=== PATIENT | female | born 1995 | race Caucasian/White ===

== ENCOUNTER 2016-10-26 12:59 | Emergency (ER) | payer OTHER ==
[~2016-10-26] VITALS: Ht 175.3 cm; Wt 72.2 kg
[2016-10-26 13:08] VITALS: TEMP 37.1; Ht 175.3 cm; Wt 72.2 kg
[2016-10-26 13:45] LABS: BASO % 0.1 %; BASO ABS # 0.01 K/uL (0-0.2); COMPLETE YES; EOS % 1.6 %; HEMATOCRIT 44.1 % (37-47); IG% 0.2 %; LYMPH % 10.8 %; MEAN CELL VOLUME 91.9 fL (80-100); MEAN CORPUSCULAR HEMOGLOBIN 29.2 pg (25-34); MEAN CORPUSCULAR HGB CONC 31.7 g/dl (32-36); MEAN PLATELET VOLUME 10.6 fL (7.4-10.4); MONO % 4.6 %; NEUT % 82.7 %; PLATELET COUNT 221 K/uL (130-400); WHITE BLOOD COUNT 10.17 K/uL (4.8-10.8)
[2016-10-26] MEDS ORDERED: BCPILLS PO (13:46)
--- NOTE | 2016-10-26 13:53 | DIAGNOSTIC IMAGING REPORT ---
CHEST ONE VIEW PORTABLE CLINICAL HISTORY: 20 years-old Female presenting with cp. TECHNIQUE: Portable upright AP view of the chest was obtained. COMPARISON: None. FINDINGS: Cardiomediastinal silhouette normal. Lungs and pleural spaces clear. Osseous structures normal. Upper abdomen normal. IMPRESSION: 1. No acute cardiopulmonary disease. Electronically signed by: Ethan Campbell M.D. 10/26/2016 1:51 PM Dictated Date/Time: 10/26/2016 1:50 PM
[2016-10-26 14:05] LABS: ALT/SGPT 20 U/L (12-78); BLOOD UREA NITROGEN 17 mg/dl (7-18); BUN/CREATININE RATIO 21.9 (10-20); CALCIUM 8.8 mg/dl (8.5-10.1); CARBON DIOXIDE 26 mmol/L (21-32); CHLORIDE 103 mmol/L (98-107); CREATININE 0.77 mg/dl (0.60-1.20); GLUCOSE 94 mg/dl (70-99); POTASSIUM 3.7 mmol/L (3.5-5.1); SODIUM 137 mmol/L (136-145)
[2016-10-26 14:10] LABS: ALKALINE PHOSPHATASE 59 U/L (45-117); AST/SGOT 17 U/L (15-37)
[2016-10-26] MEDS ORDERED: OPTIRAY 320 IV PRN (14:15)
[2016-10-26 14:53] LABS: URINE APPEARANCE CLEAR (CLEAR); URINE BILIRUBIN NEG (NEG); URINE COLOR YELLOW; URINE EPITHELIAL CELL AUTO >30 /lpf (0-5); URINE NITRITE NEG (NEG); URINE PH 7.5 (4.5-7.5); UROBILINOGEN NEG (NEG); ZZUR CULT IF INDIC CLEAN CATCH NO
--- NOTE | 2016-10-26 15:04 | DIAGNOSTIC IMAGING REPORT ---
(CHEST FOR PE) ANGIO WITH CT DOSE: 211.64 mGy.cm HISTORY: Chest pain dyspnea TECHNIQUE: Multiaxial CT images of the chest were performed following the intravenous administration of contrast to evaluate the pulmonary arteries. Maximal intensity projection images were also obtained. A dose lowering technique was utilized adhering to the principles of ALARA. COMPARISON STUDY: None. FINDINGS: There is a normal caliber thoracic aorta with no evidence for dissection. There is no evidence for pulmonary embolus. No pleural effusions. No pneumothorax. The liver and spleen are unremarkable. No mediastinal or hilar lymphadenopathy. The central airways are patent. The lungs are clear. Moderate enlargement left thyroid lobe IMPRESSION: No evidence for pulmonary embolus.. Lungs are clear. Moderate enlargement left thyroid lobe. Thyroid ultrasound is recommended on a routine basis when the patient is able The above report was generated using voice recognition software. It may contain grammatical, syntax or spelling errors. Electronically signed by: Julito Ma M.D. 10/26/2016 3:03 PM Dictated Date/Time: 10/26/2016 3:00 PM
[2016-10-26 15:08] LABS: MANUAL MICROSCOPIC REQUIRED? NO; REVIEW REQ? NO
[2016-10-26 17:05] VITALS: BP 119/73; PULSE 72; O2SAT 98
--- NOTE | 2016-10-26 18:52 | EMERGENCY ROOM VISIT NOTE ---
History Report prepared by Tadeo: Loy Carl Under the Supervision of: Dr. Dez Ackerman D.O. First contact with patient: 13:18 Chief Complaint: SYNCOPE Stated Complaint: SYNCOPE/CHEST PAIN Nursing Triage Summary: Patient was sitting at a table working on a group project around 1230 when she had a syncopal episode. Patient reports she did have LOC. Patient's friend caught her so she did not fall out of chair. Patient was incontient of urine. Patient reports about 2 years ago had syncopal episode, but did not have LOC that time. Reports some chest tightness at this time. History of Present Illness The patient is a 20 year old female who presents to the Emergency Room with complaints of syncope that occurred 2 hours ago. At this time, the patient was working on a group project when she began feeling lightheaded. She got some water and became nauseated, so she sat down and put her head on the table. Per her friends, she passed out. They caught her before she could fall out of her chair. This has never happened to the patient before. She notes that she was unconscious for about 20-30 seconds and lost control of her bladder. When she woke up, she was shaky and diaphoretic, but knew where she was. Prior to this episode, she notes having some centralized chest pain that is ache-like in nature. Pt denies headache, change in vision, fevers, shortness of breath, vomiting, diarrhea, pain with urination, weakness/tingling in the arms or legs, and melena. She denies any recent travel, sick contacts, hiking trips, or anything out of her norm. She has some indigestion occasionally without a pattern. She is on an estrogen based control. She is still lightheaded and notes that it worsens with movement. Denies any history of diabetes, hypertension, hyperlipidemia, CAD or sudden in her family at a young age. Source of History: patient Onset: 2 hours ago Position: other (global) Symptom Intensity: 20-30 seconds Quality: other (Syncope) Timing: resolved Modifying Factors (Worsening): movement (lightheadedness worsens) Associated Symptoms: + diaphoresis, + nausea, No fevers, No headache, No chest pain, No SOB, No vomiting, No melena, No diarrhea, No urinary symptoms, No weakness, No numbness Note: She is lightheaded. Review of Systems See HPI for pertinent positives & negatives. A total of 10 systems reviewed and were otherwise negative. Family History Patient reports no known family medical history. Social History Smoking Status: Never Smoker Smokeless Tobacco Use: No Alcohol Use: none Drug Use: none Marital Status: single Housing Status: lives with roommate Occupation Status: student Current/Historical Medications Scheduled Control Pills ( Control Pills), 1 TAB PO DAILY Allergies Coded Allergies: No Known Allergies (Unverified , 10/26/16) Physical Exam Vital Signs Date Time Temp Pulse Resp B/P (MAP) Pulse Ox O2 Delivery O2 Flow Rate FiO2 10/26/16 17:05 72 16 119/73 98 Room Air 10/26/16 16:00 70 18 118/74 99 10/26/16 14:29 76 10/26/16 13:59 70 96 10/26/16 13:29 67 20 100 10/26/16 13:11 58 103/58 66 113/69 70 102/70 10/26/16 13:10 102/70 10/26/16 13:09 59 10/26/16 13:09 113/69 10/26/16 13:08 37.1 62 18 109/64 95 Room Air Physical Exam GENERAL: alert, sitting up in bed, well appearing, well nourished, no distress, non-toxic EYE EXAM: normal conjunctiva, PERRL and EOM's intact OROPHARYNX: no exudate, no erythema, lips, buccal mucosa, and tongue normal and mucous membranes are moist NECK: supple, no nuchal rigidity, no adenopathy, non-tender LUNGS: Clear to auscultation. Normal chest wall mechanics HEART: no murmurs, S1 normal and S2 normal ABDOMEN: abdomen soft, non-tender, normo-active bowel sounds, no masses, no rebound or guarding. BACK: Back is symmetrical on inspection and there is no deformity, no midline tenderness, no CVA tenderness. SKIN: no rashes and no bruising UPPER EXTREMITIES: upper extremities are grossly normal. LOWER EXTREMITIES: No pitting edema. NEURO EXAM: Normal sensorium, cranial nerves II-XII intact, normal speech, no weakness of arms, no weakness of legs. No drift. Finger to nose intact. Gross sensation intact. Medical Decision & Procedures ER Provider Diagnostic Interpretation: Radiology results as stated below per my review and the radiologist's interpretation: CHEST ONE VIEW PORTABLE CLINICAL HISTORY: 20 years-old Female presenting with cp. TECHNIQUE: Portable upright AP view of the chest was obtained. COMPARISON: None. FINDINGS: Cardiomediastinal silhouette normal. Lungs and pleural spaces clear. Osseous structures normal. Upper abdomen normal. IMPRESSION: 1. No acute cardiopulmonary disease. Electronically signed by: Ethan Campbell M.D. 10/26/2016 1:51 PM Dictated Date/Time: 10/26/2016 1:50 PM (CHEST FOR PE) ANGIO WITH CT DOSE: 211.64 mGy.cm HISTORY: Chest pain dyspnea TECHNIQUE: Multiaxial CT images of the chest were performed following the intravenous administration of contrast to evaluate the pulmonary arteries. Maximal intensity projection images were also obtained. A dose lowering technique was utilized adhering to the principles of ALARA. COMPARISON STUDY: None. FINDINGS: There is a normal caliber thoracic aorta with no evidence for dissection. There is no evidence for pulmonary embolus. No pleural effusions. No pneumothorax. The liver and spleen are unremarkable. No mediastinal or hilar lymphadenopathy. The central airways are patent. The lungs are clear. Moderate enlargement left thyroid lobe IMPRESSION: No evidence for pulmonary embolus.. Lungs are clear. Moderate enlargement left thyroid lobe. Thyroid ultrasound is recommended on a routine basis when the patient is able The above report was generated using voice recognition software. It may contain grammatical, syntax or spelling errors. Electronically signed by: Julito Ma M.D. 10/26/2016 3:03 PM Dictated Date/Time: 10/26/2016 3:00 PM Laboratory Results 10/26/16 13:16 Red Blood Count 4.80, Mean Corpuscular Volume 91.9, Mean Corpuscular Hemoglobin 29.2, Mean Corpuscular Hemoglobin Concent 31.7, Mean Platelet Volume 10.6, Neutrophils (%) (Auto) 82.7, Lymphocytes (%) (Auto) 10.8, Monocytes (%) (Auto) 4.6, Eosinophils (%) (Auto) 1.6, Basophils (%) (Auto) 0.1, Neutrophils # (Auto) 8.41, Lymphocytes # (Auto) 1.10, Monocytes # (Auto) 0.47, Eosinophils # (Auto) 0.16, Basophils # (Auto) 0.01 10/26/16 13:16 Test 10/26/16 13:16 10/26/16 14:20 10/26/16 15:41 White Blood Count 10.17 K/uL (4.8-10.8) Red Blood Count 4.80 M/uL (4.2-5.4) Hemoglobin 14.0 g/dL (12.0-16.0) Hematocrit 44.1 % (37-47) Mean Corpuscular Volume 91.9 fL (80-100) Mean Corpuscular Hemoglobin 29.2 pg (25-34) Mean Corpuscular Hemoglobin Concent 31.7 g/dl (32-36) Platelet Count 221 K/uL (130-400) Mean Platelet Volume 10.6 fL (7.4-10.4) Neutrophils (%) (Auto) 82.7 % Lymphocytes (%) (Auto) 10.8 % Monocytes (%) (Auto) 4.6 % Eosinophils (%) (Auto) 1.6 % Basophils (%) (Auto) 0.1 % Neutrophils # (Auto) 8.41 K/uL (1.4-6.5) Lymphocytes # (Auto) 1.10 K/uL (1.2-3.4) Monocytes # (Auto) 0.47 K/uL (0.11-0.59) Eosinophils # (Auto) 0.16 K/uL (0-0.5) Basophils # (Auto) 0.01 K/uL (0-0.2) RDW Standard Deviation 45.6 fL (36.4-46.3) RDW Coefficient of Variation 13.4 % (11.5-14.5) Immature Granulocyte % (Auto) 0.2 % Immature Granulocyte # (Auto) 0.02 K/uL (0.00-0.02) D-Dimer 550 ug/L FEU (0-500) Anion Gap 8.0 mmol/L (3-11) Est Creatinine Clear Calc Drug Dose 121.9 ml/min Estimated GFR () 128.8 Estimated GFR (Non- 111.1 BUN/Creatinine Ratio 21.9 (10-20) Calcium Level 8.8 mg/dl (8.5-10.1) Total Bilirubin 0.5 mg/dl (0.2-1) Direct Bilirubin 0.1 mg/dl (0-0.2) Aspartate Amino Transf (AST/SGOT) 17 U/L (15-37) Alanine Aminotransferase (ALT/SGPT) 20 U/L (12-78) Alkaline Phosphatase 59 U/L (45-117) Total Protein 7.2 gm/dl (6.4-8.2) Albumin 3.3 gm/dl (3.4-5.0) Lipase 190 U/L (73-393) Urine Color YELLOW Urine Appearance CLEAR (CLEAR) Urine pH 7.5 (4.5-7.5) Urine Specific [place] 1.020 (1.000-1.030) Urine Protein NEG (NEG) Urine Glucose (UA) NEG (NEG) Urine Ketones NEG (NEG) Urine Occult Blood NEG (NEG) Urine Nitrite NEG (NEG) Urine Bilirubin NEG (NEG) Urine Urobilinogen NEG (NEG) Urine Leukocyte Esterase NEG (NEG) Urine WBC (Auto) 1-5 /hpf (0-5) Urine RBC (Auto) 0-4 /hpf (0-4) Urine Hyaline Casts (Auto) 1-5 /lpf (0-5) Urine Epithelial Cells (Auto) >30 /lpf (0-5) Urine Bacteria (Auto) NEG (NEG) Urine Test NEG (NEG) Troponin I < 0.015 ng/ml (0-0.045) Laboratory results per my review. ECG Indication: syncope Rate (beats per minute): 59 Rhythm: sinus bradycardia Findings: other (Normal axis, normal intervals, intraventricular conduction delay) ED Course ED COURSE: Vital signs were reviewed and showed normal vitals. The patients medical record was reviewed The above diagnostic studies were performed and reviewed. ED treatments and interventions as stated above. 1318: The patient was evaluated in room A3. A complete history and physical examination was performed. 1532: I updated the patient at this time. She is feeling better. We will be getting a repeat troponin. 1654: Upon reevaluation, the patient is resting. I discussed my findings with the patient and she understands and agrees with the treatment plan. I answered all of her questions at bedside. Based on the patients age, coexisting illnesses, exam and lab findings the decision to treat as an outpatient was made. The patient remained stable while under my care. The patient appeared well at the time of discharge. Medical Decision Differential diagnosis includes etiologies such as vasovagal event, infection, hypoglycemia, electrolyte abnormalities, cardiac sources, intracerebral event, toxicologic, neurologic, as well as others were entertained. Patient is a 20-year-old female that presents to ER following a syncopal episode. She was working with in a group felt nauseous, mild chest discomfort, became diaphoretic and vision narrowed. She notes she later had done this and passed out for about 20 seconds. She did lose control of her bladder. No weakness or numbness in arms or legs. She completely neurologically intact. No risk factors for CAD. No sudden in her family at a young age. D- dimer was elevated and subsequently CT was performed and was negative. Chest x- ray unremarkable. EKG nondiagnostic. Troponins were negative 2 and a low risk patient. She was updated at bedside and discharged to follow-up with PCP. She was found to have a slightly enlarged thyroid. I did call the patient to update her in regards to this as i forgot to mention this incidental finding. She will need to have this followed up with within next several weeks. The patient notes that she has been having this followed twice a year by her PCP. Discussed with Pt concerning signs and symptoms to watch out for. Pt was instructed to follow up with their PCP and discussed with the patient their option to return to the ED at anytime for persistent or worsening symptoms. The appropriate anticipatory guidance and out-patient management, including indications for return to the emergency department, were explained at length to the patient and understood. Medication Reconcilliation Current Medication List: was personally reviewed by me Blood Pressure Screening Patient's blood pressure: Normal blood pressure Blood pressure disposition: Did not require urgent referral Impression Primary Impression: Vasovagal syncope Additional Impression: Enlarged thyroid Scribe Attestation The scribe's documentation has been prepared under my direction and personally reviewed by me in its entirety. I confirm that the note above accurately reflects all work, treatment, procedures, and medical decision making performed by me. Departure Information Dispostion Home / Self-Care Referrals [facility] (PCP) Forms HOME CARE DOCUMENTATION FORM, IMPORTANT VISIT INFORMATION Patient Instructions ED Syncope Vasovagal, My [facility] Additional Instructions Please follow up with your primary care doctor or if you are a student, [facility] services with in the next 24 hours. Any worsening of your symptoms, please return to the ED immediately. This includes any fevers greater than 100.4, worsening pain, chest pain, shortness breath, persistent nausea, vomiting, unable to eat or drink, or any other concerning signs or symptoms from your standpoint. Problem Qualifiers
== END 2016-10-26 17:10 | disposition home or self-care (01) ==
LOC: C.EDA 13:04
DX: R55 Syncope and collapse (principal); E04.9 Nontoxic goiter, unspecified; Z79.3 Long term (current) use of hormonal contraceptives

== ENCOUNTER 2017-03-09 13:30 | Emergency (ER) | payer OTHER ==
[~2017-03-09] VITALS: Ht 175.3 cm; Wt 72.0 kg
[2017-03-09 13:32] VITALS: TEMP 36.7; Ht 175.3 cm; Wt 72.0 kg
[2017-03-09] MEDS ORDERED: BCPILLS PO (13:46)
[2017-03-09] MEDS ORDERED: KETOROLAC TROMETHAMINE 30 MG/ML VIAL IV STA (16:27)
[2017-03-09] MEDS ORDERED: SODIUM CHLORIDE 0.9% 1000ML 1,000 ML IV ONE (16:30)
[2017-03-09] MEDS ORDERED: ACETAMINOPHEN IV 1,000 MG in EMPTY BAG 0 ML IV ONE (16:30)
[2017-03-09] MEDS ORDERED: LEVO100T PO (17:06)
[2017-03-09 17:29] LABS: BASO % 0.4 %; BASO ABS # 0.03 K/uL (0-0.2); EOS % 1.6 %; EOS ABS # 0.11 K/uL (0-0.5); HEMATOCRIT 43.4 % (37-47); HEMOGLOBIN 14.3 g/dL (12.0-16.0); IG# 0.02 K/uL (0.00-0.02); LYMPH % 35.3 %; LYMPH ABS # 2.46 K/uL (1.2-3.4); MEAN CELL VOLUME 88.8 fL (80-100); MEAN CORPUSCULAR HEMOGLOBIN 29.2 pg (25-34); MEAN CORPUSCULAR HGB CONC 32.9 g/dl (32-36); MEAN PLATELET VOLUME 10.7 fL (7.4-10.4); MONO % 8.2 %; MONO ABS # 0.57 K/uL (0.11-0.59); NEUT % 54.2 %; NEUT ABS # 3.77 K/uL (1.4-6.5); PLATELET COUNT 236 K/uL (130-400); RED CELL DISTRIBUTION WIDTH CV 13.1 % (11.5-14.5); RED CELL DISTRIBUTION WIDTH SD 42.4 fL (36.4-46.3); WHITE BLOOD COUNT 6.96 K/uL (4.8-10.8)
--- NOTE | 2017-03-09 17:49 | DIAGNOSTIC IMAGING REPORT ---
HEAD WITHOUT CONTRAST (CT) CT DOSE: 537.48 mGy.cm HISTORY: Mental status change Headache TECHNIQUE: Multiaxial CT images of the head were performed without the use of intravenous contrast. A dose lowering technique was utilized adhering to the principles of ALARA. Comparison: None. Findings: The paranasal sinuses and mastoid air cells are clear. The calvarium and skull base are intact. The ventricles and sulci are within normal limits. There is no mass, hematoma, midline shift, or acute infarct. Impression: No acute intracranial abnormality. The above report was generated using voice recognition software. It may contain grammatical, syntax or spelling errors. Electronically signed by: Julito Ma M.D. 03/09/2017 5:48 PM Dictated Date/Time: 03/09/2017 5:48 PM
[2017-03-09 17:51] LABS: ALBUMIN 3.8 gm/dl (3.4-5.0); CALCIUM 9.7 mg/dl (8.5-10.1); CREATININE 0.77 mg/dl (0.60-1.20); POTASSIUM 3.3 mmol/L (3.5-5.1)
[2017-03-09 18:00] LABS: MONOSPOT NEG (NEG)
[2017-03-09 18:02] LABS: TOTAL PROTEIN 8.2 gm/dl (6.4-8.2)
[2017-03-09 18:49] LABS: INFLUENZA B ANTIGEN Neg for Influ B (NEG)
[2017-03-09] MEDS ORDERED: CEFTRIAXONE SOD INJ 1 GM ADDVIAL IV STA (19:00)
[2017-03-09 19:17] VITALS: BP 101/54; PULSE 51; O2SAT 99
[2017-03-09] MEDS ORDERED: DOXY100C PO (19:21)
--- NOTE | 2017-03-09 23:15 | EMERGENCY ROOM VISIT NOTE ---
History First contact with patient: 15:42 Chief Complaint: HEADACHE Stated Complaint: MIGRAINE, FATIGUE, CHILLS- SENT FROM [place] History of Present Illness The patient is a 21 year old female who presents to the Emergency Room with complaints of fatigue, chills, and headache symptoms for the past few days. The patient does not have a history of migraine headaches, and does not report distinct fever. She went to a local urgent care clinic and was provided to the ER for further management. The patient does not have numbness or paresthesias. No photophobia. She has been eating, drinking, and using the bathroom is normal. She does have a relatively recent diagnosis of hypothyroidism and is on Synthroid. The patient does not have other chronic medical problems. She is without chest pain, chest tightness, shortness of breath, or abdominal pain. She denies chance of . She rates her overall discomfort a 6/10. Review of Systems More than 10 systems were reviewed and otherwise negative with the exception of history of present illness. Past Medical/Surgical History No chronic medical disease Family History Patient reports no known family medical history. Social History Smoking Status: Never Smoker Alcohol Use: none Drug Use: none Marital Status: single Housing Status: lives with roommate Occupation Status: student Current/Historical Medications Scheduled Control Pills ( Control Pills), 1 TAB PO DAILY Doxycycline Hyclate (Vibramycin), 100 MG PO BID Levothyroxine Sodium (Synthroid), 100 MCG PO DAILY Physical Exam Vital Signs Date Time Temp Pulse Resp B/P (MAP) Pulse Ox O2 Delivery O2 Flow Rate FiO2 03/09/17 19:17 51 18 101/54 99 Room Air 03/09/17 13:32 36.7 59 16 141/84 97 Room Air Physical Exam VITALS: Vitals are noted on the nurse's note and reviewed by myself. Vital signs stable. GENERAL: Well-developed, well-nourished, white female, who is in no acute distress and resting comfortably. Patient is cooperative with the examination. HEAD: Normocephalic atraumatic. EARS: External ear normal. External auditory canals clear, tympanic membranes pearly lo without erythema or effusion bilaterally. EYES: Pupils equal round and reactive to light and accommodation. Conjunctivae without injection, sclerae without icterus. Extraocular movements intact. NOSE: Patent, turbinates without inflammation or discharge. MOUTH: Mucous membranes moist. Tonsils are not enlarged. Pharynx without erythema, blood, or exudate. Uvula midline. Airway patent. NECK: Supple without nuchal rigidity. No lymphadenopathy. No thyromegaly. Cervical spine is nontender. No meningismus. Negative Brudzinski's and Kernig' s. HEART: Regular rate and rhythm without murmurs gallops or rubs. LUNGS: Clear to auscultation bilaterally without wheezes, rales or rhonchi. No retractions or accessory muscle use. ABDOMEN: Positive normal bowel sounds x 4. Soft, nontender, without masses or organomegaly. No guarding or rebound tenderness. MUSCULOSKELETAL: No muscle atrophy, erythema, or edema noted. Full range of motion without joint tenderness in all extremities. No tenderness to palpation. Normal gait. Strength 5/5 throughout. NEURO: Patient was alert and oriented to person place and time. CN II through XII grossly intact. No focal neurological deficits. Deep tendon reflexes 2+ throughout. SKIN: The skin was without rashes, erythema, edema, or bruising. Capillary refill less than 2 seconds. Medical Decision & Procedures ER Provider Diagnostic Interpretation: HEAD WITHOUT CONTRAST (CT) CT DOSE: 537.48 mGy.cm HISTORY: Mental status change Headache TECHNIQUE: Multiaxial CT images of the head were performed without the use of intravenous contrast. A dose lowering technique was utilized adhering to the principles of ALARA. Comparison: None. Findings: The paranasal sinuses and mastoid air cells are clear. The calvarium and skull base are intact. The ventricles and sulci are within normal limits. There is no mass, hematoma, midline shift, or acute infarct. Impression: No acute intracranial abnormality. Laboratory Results 03/09/17 17:11 Red Blood Count 4.89, Mean Corpuscular Volume 88.8, Mean Corpuscular Hemoglobin 29.2, Mean Corpuscular Hemoglobin Concent 32.9, Mean Platelet Volume 10.7, Neutrophils (%) (Auto) 54.2, Lymphocytes (%) (Auto) 35.3, Monocytes (%) (Auto) 8.2, Eosinophils (%) (Auto) 1.6, Basophils (%) (Auto) 0.4, Neutrophils # (Auto) 3.77, Lymphocytes # (Auto) 2.46, Monocytes # (Auto) 0.57, Eosinophils # (Auto) 0.11, Basophils # (Auto) 0.03 03/09/17 17:11 Test 03/09/17 00:00 03/09/17 16:52 03/09/17 17:11 Influenza Type A Antigen Neg for Influ A (NEG) Influenza Type B Antigen Neg for Influ B (NEG) Urine Color YELLOW Urine Appearance CLEAR (CLEAR) Urine pH 7.5 (4.5-7.5) Urine Specific [place] 1.011 (1.000-1.030) Urine Protein NEG (NEG) Urine Glucose (UA) NEG (NEG) Urine Ketones NEG (NEG) Urine Occult Blood NEG (NEG) Urine Nitrite NEG (NEG) Urine Bilirubin NEG (NEG) Urine Urobilinogen NEG (NEG) Urine Leukocyte Esterase NEG (NEG) Urine Test NEG (NEG) White Blood Count 6.96 K/uL (4.8-10.8) Red Blood Count 4.89 M/uL (4.2-5.4) Hemoglobin 14.3 g/dL (12.0-16.0) Hematocrit 43.4 % (37-47) Mean Corpuscular Volume 88.8 fL (80-100) Mean Corpuscular Hemoglobin 29.2 pg (25-34) Mean Corpuscular Hemoglobin Concent 32.9 g/dl (32-36) Platelet Count 236 K/uL (130-400) Mean Platelet Volume 10.7 fL (7.4-10.4) Neutrophils (%) (Auto) 54.2 % Lymphocytes (%) (Auto) 35.3 % Monocytes (%) (Auto) 8.2 % Eosinophils (%) (Auto) 1.6 % Basophils (%) (Auto) 0.4 % Neutrophils # (Auto) 3.77 K/uL (1.4-6.5) Lymphocytes # (Auto) 2.46 K/uL (1.2-3.4) Monocytes # (Auto) 0.57 K/uL (0.11-0.59) Eosinophils # (Auto) 0.11 K/uL (0-0.5) Basophils # (Auto) 0.03 K/uL (0-0.2) RDW Standard Deviation 42.4 fL (36.4-46.3) RDW Coefficient of Variation 13.1 % (11.5-14.5) Immature Granulocyte % (Auto) 0.3 % Immature Granulocyte # (Auto) 0.02 K/uL (0.00-0.02) Anion Gap 6.0 mmol/L (3-11) Est Creatinine Clear Calc Drug Dose 120.8 ml/min Estimated GFR () 127.9 Estimated GFR (Non- 110.4 BUN/Creatinine Ratio 14.4 (10-20) Calcium Level 9.7 mg/dl (8.5-10.1) Magnesium Level 2.2 mg/dl (1.8-2.4) Total Bilirubin 0.5 mg/dl (0.2-1) Aspartate Amino Transf (AST/SGOT) 19 U/L (15-37) Alanine Aminotransferase (ALT/SGPT) 24 U/L (12-78) Alkaline Phosphatase 68 U/L (45-117) Total Protein 8.2 gm/dl (6.4-8.2) Albumin 3.8 gm/dl (3.4-5.0) Globulin 4.4 gm/dl (2.5-4.0) Albumin/Globulin Ratio 0.9 (0.9-2) Lipase 215 U/L (73-393) Thyroid Stimulating Hormone (TSH) 2.710 uIu/ml (0.300-4.500) Lyme Disease IgG Antibody NEG (NEG) Monoscreen NEG (NEG) Medications Administered Medications (Trade) Dose Ordered Sig/Karen Route Start Time Stop Time Status Last Admin Dose Admin Sodium Chloride 1,000 ml @ 999 mls/hr Q1H1M ONCE IV 03/09/17 16:30 03/09/17 17:30 DC 03/09/17 17:08 999 MLS/HR Ketorolac Tromethamine (Toradol Inj) 30 mg NOW STAT IV 03/09/17 16:27 03/09/17 16:29 DC 03/09/17 17:08 30 MG Acetaminophen 1000 mg/Empty Bag 100 ml @ 400 mls/hr NOW ONCE IV 03/09/17 16:30 03/09/17 16:44 DC 03/09/17 17:09 400 MLS/HR Ceftriaxone Sodium (Rocephin Inj) 1 gm NOW STAT IV 03/09/17 19:00 03/09/17 19:01 DC 03/09/17 19:16 1 GM ED Course Physical exam and history were performed. Nursing notes, EMR, and Medication List were personally reviewed. Patient appears to have headache symptoms with fatigue for the past few days. The patient does not appear with signs of meningitis or encephalitis on examination. She does not seem toxic. She was sent here by an urgent care clinic for CT scan of her head. IV access was established and labs were obtained. The patient was hydrated and medicated as above. Because of her symptoms a CT scan was performed. The patient's blood work is as above and was reviewed. She does not have a significantly elevated white blood cell count, gross anemia, bandemia, or significant electrolyte imbalance. Transaminases are nondiagnostic. TSH shows euthyroid state. Monospot is negative. Her Lyme test is equivocal. CT scan of the head does not show acute findings. On repeat evaluation the patient had significant improvement of her symptoms after the above interventions. She continues without signs of meningitis, and lumbar puncture was discussed, but ultimately deferred. The patient may have Lyme disease with confirmatory test pending. Because of this she was given a dose of Rocephin in the department. I will give her a continuation course of doxycycline. The patient was asked to follow with [facility] in the next few days for recheck of her condition. She will otherwise be treated conservatively with ibuprofen and Tylenol. The patient was pleased with this plan of voice understanding. She was otherwise invited back to the ER with any new, worsening, or concerning symptoms. The chart was completed utilizing [employer] Speech Voice Recognition Software. Grammatical errors, random word insertions, pronoun errors, and incomplete sentences are an occasional consequence of this system due to software limitations, ambient noise, and hardware issues. Any formal questions or concerns about the content, text, or information contained within the body of this dictation should be directly addressed to the provider for clarification. . Medical Decision The differential diagnosis includes, but is not limited to: acute intracranial bleed, meningitis, encephalitis, mass or mass effect, sinusitis, infection, tumor, headache, temporal arteritis and carbon monoxide exposure, and migraine. Impression Primary Impression: Headache Additional Impression: Suspected Lyme disease Departure Information Dispostion Home / Self-Care Condition GOOD Prescriptions Doxycycline Hyclate (VIBRAMYCIN) 100 Mg Cap 100 MG PO BID for 21 Days, #42 CAP Prov: Jose Banerjee PA-C 03/09/17 Forms HOME CARE DOCUMENTATION FORM, IMPORTANT VISIT INFORMATION Patient Instructions My [facility] Additional Instructions You were seen and evaluated today on an emergency basis only. This is not a substitute for, or an effort to provide, complete comprehensive medical care. It is not possible to recognize and treat all injuries or illnesses in a single emergency department visit. For this reason it is recommended that you followup with Your primary care physician next week for any ongoing or persistent symptoms. For baseline pain relief you may alternate ibuprofen and acetaminophen every 4 hours for pain control. Take 600 mg ibuprofen (Advil) and then 4 hours later take 1000 mg acetaminophen (Tylenol). Do not take more than 3000 mg acetaminophen in a single day. Drink plenty of fluids and remain well hydrated. Doxycycline twice a day for 21 days. TAKE THIS MEDICATION WITH FOOD. I really mean it Avoid exposure to the sun/UV light while on this medication or use frequent application of SPF 50 or higher due to increased sensitivity to UV rays and high risk for severe ferguson. You are welcome to return to the emergency department anytime with new, worsening, or concerning symptoms. Problem Qualifiers
== END 2017-03-09 19:36 | disposition home or self-care (01) ==
LOC: C.EDB 13:31 → C.EDA 19:36
DX: R51 Headache (principal); R53.83 Other fatigue; R68.83 Chills (without fever)

== ENCOUNTER 2017-03-11 15:09 | Emergency (ER) | payer OTHER ==
[~2017-03-11] VITALS: Ht 175.3 cm; Wt 73.8 kg
[~2017-03-11 15:09] MED LIST: BCPILLS PO; DOXY100C PO; LEVO100T PO
[2017-03-11 15:20] VITALS: Ht 175.3 cm; Wt 73.8 kg
[2017-03-11] MEDS ORDERED: METOCLOPRAMIDE HCL INJ 5 MG/ML 2 ML VIAL IM STA (16:13)
[2017-03-11] MEDS ORDERED: DiphenhydrAMINE HCL 50 MG/ML VIAL IV STA (16:13)
[2017-03-11] MEDS ORDERED: SODIUM CHLORIDE 0.9% 1000ML 1,000 ML IV STA (16:13)
--- NOTE | 2017-03-11 16:17 | EMERGENCY ROOM VISIT NOTE ---
History Report prepared by Tadeo: Antione Singh Under the Supervision of: Dr. Wolf Fernandes M.D. First contact with patient: 15:44 Chief Complaint: HEAD PAIN Stated Complaint: MIGRAINE, WEAK, NAUSEA History of Present Illness The patient is a 21 year old female with mother at bedside who presents to the Emergency Room with complaints of a constant, headache beginning three days ago. The patient states she was evaluated in the ED two days ago for similar symptoms. She reports she was discharged on antibiotics and told she may have Lyme's Disease. The patient notes since her discharge, she has taken her medication, and it has gotten worse. She states she has also been experiencing nausea and body aches. The patient reports she was outside in November, but she has not been outside since. She denies loss of consciousness, fevers, vomiting, diarrhea, rashes, vaginal discharge, and vaginal bleeding. The patient denies a history of migraines. Source of History: patient Onset: three days ago Position: head Quality: ache Timing: constant Associated Symptoms: + nausea, No LOC, No fevers, No vomiting, No diarrhea, No rash Note: Associated symptoms: body aches Denies: vaginal bleeding, vaginal discharge Review of Systems See HPI for pertinent positives and negatives. A total of ten systems were reviewed and were otherwise negative. Past Medical & Surgical Patient denies pertinent past medical and surgical history. Family History Patient reports no known family medical history. Social History Smoking Status: Never Smoker Alcohol Use: none Drug Use: none Marital Status: single Housing Status: lives with roommate Occupation Status: student Current/Historical Medications Scheduled Control Pills ( Control Pills), 1 TAB PO DAILY Levothyroxine Sodium (Synthroid), 100 MCG PO DAILY Scheduled PRN Ibuprofen (Motrin), 800 MG PO Q8H PRN for Pain Ondasetron Odt (Zofran Odt), 4 MG SL Q8 PRN for Nausea Allergies Coded Allergies: No Known Allergies (Unverified , 03/11/17) Physical Exam Vital Signs Date Time Temp Pulse Resp B/P (MAP) Pulse Ox O2 Delivery O2 Flow Rate FiO2 03/11/17 19:48 51 18 102/60 99 03/11/17 18:09 36.7 56 16 123/80 99 Room Air 03/11/17 16:50 59 16 118/71 100 Room Air 03/11/17 15:20 36.5 65 16 116/78 98 Room Air Physical Exam Physical Exam GENERAL: She is oriented to person, place, and time. She appears well- developed and well-nourished. She does not appear distressed. ____ HENT: Exam performed. Head: Normocephalic and atraumatic. Right Ear: External ear normal. No mastoid tenderness. Left Ear: External ear normal. No mastoid tenderness. Mouth/Throat: The oropharynx is clear and moist. No trismus in the jaw. No dental abscesses or uvula swelling. No oropharyngeal exudate or tonsillar abscesses. ____ EYES: Conjunctivae and EOM are normal. Pupils are equal, round, and reactive to light. Right eye exhibits no discharge. Left eye exhibits no discharge. No scleral icterus.No photophobia. Funduscopic exam shows no AV nicking or papilledema bilaterally.____ NECK: Normal range of motion. Neck supple. No JVD present. No spinous process tenderness present. No carotid bruit present. No rigidity. No tracheal deviation and normal range of motion present. No Brudzinski's sign and no Kernig 's sign noted. ____ CV: Normal rate, regular rhythm, normal heart sounds and intact distal pulses. There is no peripheral edema. Palpable radial pulses bue. ____ PULM/CHEST: Effort normal and breath sounds normal. No respiratory distress. No stridor. She has no wheezes. She has no rales. Chest Wall: She exhibits no tenderness. ____ ABD: The abdomen is soft. Bowel sounds are normal. She has no distension. No mass is present. There is no tenderness. There is no rebound, no guarding, no Obregon's sign and no tenderness at McBurney's point. Rovsig negative MUSC/SKEL: Normal range of motion. There is no peripheral edema, tenderness or deformity. LYMPH: No cervical adenopathy. ____ NEURO: She is alert and oriented to person, place, and time. She has normal strength. No cranial nerve deficit or sensory deficit. Coordination and gait normal. GCS eye subscore is 4. GCS verbal subscore is 5. GCS motor subscore is 6. cerbellar tests wnl. ____ SKIN: Skin is warm and dry. She is not diaphoretic. ____ PSYCH: She has a normal mood and affect. Her behavior is normal. Judgment and thought content normal. ____ Medical Decision & Procedures Medications Administered Medications (Trade) Dose Ordered Sig/Karen Route Start Time Stop Time Status Last Admin Dose Admin Sodium Chloride 1,000 ml @ 999 mls/hr Q1H1M STAT IV 03/11/17 16:13 03/11/17 17:13 DC 03/11/17 16:54 999 MLS/HR Diphenhydramine HCl (Benadryl Inj) 25 mg NOW STAT IV 03/11/17 16:13 03/11/17 16:15 DC 03/11/17 16:53 25 MG Metoclopramide HCl (Reglan Inj) 10 mg TODAY@1650 IV 03/11/17 16:50 03/11/17 20:00 DC 03/11/17 16:53 10 MG Ketorolac Tromethamine (Toradol Inj) 15 mg NOW STAT IV 03/11/17 17:54 03/11/17 17:55 DC 03/11/17 18:14 15 MG ED Course 1549: EMR reviewed. The patient was seen in the ED on 03/09/17 for a migraine and fatigue. at that time no photophobia, paresthesia, or weakness. Her exam at that time showed no meningeal signs. She had a CT scan performed that was within normal limits. Blood work was in normal limits with the exception of a Lyme Disease IgM antibody that was equivocal and IgG antibody that was negative. Western blot is still out and not back form the lab. The patient was evaluated in room A11A. A complete history and physical exam was performed. Discussed with the pt and mother at bedside that the patient has absolutely no physical exam finds for meningitis, including no nuchal rigidity, no weakness, No Brudzinski's sign, no Kernig's sign, no photophobia, no cerebellar defects, no facial nerve palsy, I explained to the patient and mother the only way to diagnoses lyme meningitis or other meningitis would be with a lumbar puncture. I discussed that I will give analgesia for the procedure and we are happy to perform it. The mother and patient would like to try headache medication and discuss it with family members before making a decision. 1613: Ordered Diphenhydramine HCl 25mg IV, Sodium Chloride 1000 ml @ 999 mls/hr IV 1650: Ordered Metoclopramide HCl 10mg IV 1738: Patient is resting comfortably. The patient states headache is better after Reglan and Benadryl. It has decreased from a 10/10 to a 7/10 in severity. Repeat PE shows no nuchal rigidity or no photophobia. The patient and mother are still discussing the Lumbar Puncture with the father over the phone. I discussed the risks and benefits of the procedure. I informed them that I am happy to do it if they decide they would like me to. 1754: Ordered Ketorolac Tromethamine 15mg IV 185: I reevaluated the patient. Her vitals are stable, and she feels better. The mother and patient declined the LP after discussing with the father and other family members. I discussed the risks and benefits of not performing the test with them. I do agree with them that a lumbar puncture is not necessary at this time giving the patient has been afebrile for 4 days and has no physical exam findings consistent with meningitis. I again offered to perform the procedure as this is the only way to truly rule out meningitis however they declined again. DISCHARGE - Plan of care discussed with patient and family and questions answered. The patient and family were given both verbal and printed discharge instructions. The patient and family verbalized understanding and ability to comply. The patient and family are able to seek outpatient follow up as noted in the discharge instructions. The patient and family verbalized understanding and ability to comply. The patient is discharged in stable condition. The patient and family were instructed to return for worsening symptoms. Medical Decision vitals are stable, and she feels better. The mother and patient declined the LP after discussing with the father and other family members. I discussed the risks and benefits of not performing the test with them. I do agree with them that a lumbar puncture is not necessary at this time giving the patient has been afebrile for 4 days and has no physical exam findings consistent with meningitis. I again offered to perform the procedure as this is the only way to truly rule out meningitis however they declined again. DISCHARGE - Plan of care discussed with patient and family and questions answered. The patient and family were given both verbal and printed discharge instructions. The patient and family verbalized understanding and ability to comply. The patient and family are able to seek outpatient follow up as noted in the discharge instructions. The patient and family verbalized understanding and ability to comply. The patient is discharged in stable condition. The patient and family were instructed to return for worsening symptoms. Impression Primary Impression: Headache Scribe Attestation The scribe's documentation has been prepared under my direction and personally reviewed by me in its entirety. I confirm that the note above accurately reflects all work, treatment, procedures, and medical decision making performed by me. The chart was completed utilizing [employer] Speech voice recognition software. Grammatical errors, random word insertions, pronoun errors, and incomplete sentences are an occasional consequence of this system due to software limitations, ambient noise, and hardware issues. Any formal questions or concerns about the content, text, or information contained within the body of this dictation should be directly addressed to the physician for clarification. Departure Information Dispostion Home / Self-Care Prescriptions Ondasetron Odt (ZOFRAN ODT) 4 Mg Tab 4 MG SL Q8 Y for Nausea, #30 TAB Prov: Wolf Fernandes M.D. 03/11/17 Ibuprofen (Motrin) 800 Mg Tab 800 MG PO Q8H Y for Pain for 7 Days, #21 TAB Prov: Wolf Fernandes M.D. 03/11/17 Referrals [facility] (PCP) Forms HOME CARE DOCUMENTATION FORM, IMPORTANT VISIT INFORMATION, WORK / SCHOOL INSTRUCTIONS Patient Instructions My [facility] Additional Instructions Return to emergency department if he developed fever greater than 100.4, vomiting, seizure, lose consciousness, or your symptoms dont get better Problem Qualifiers Primary Impression: Headache Headache type: unspecified Headache chronicity pattern: unspecified pattern Intractability: not intractable Qualified Codes: R51 - Headache
[2017-03-11] MEDS ORDERED: NURSING VERBAL MED ORDER ONE (16:45)
[2017-03-11] MEDS ORDERED: METOCLOPRAMIDE HCL INJ 5 MG/ML 2 ML VIAL IV SCH (16:50)
[2017-03-11] MEDS ORDERED: KETOROLAC TROMETHAMINE 30 MG/ML VIAL IV STA (17:54)
[2017-03-11 18:09] VITALS: TEMP 36.7
[2017-03-11] MEDS ORDERED: IBUP-1428 PO (19:18)
[2017-03-11] MEDS ORDERED: IBUP600T44 PO (19:18)
[2017-03-11] MEDS ORDERED: ONDA4TAB10 SL (19:19)
[2017-03-11 19:48] VITALS: BP 102/60; PULSE 51; O2SAT 99
== END 2017-03-11 19:48 | disposition home or self-care (01) ==
LOC: C.EDB 15:10 → C.EDA 19:48
DX: R51 Headache (principal); R11.0 Nausea; R52 Pain, unspecified; Z79.3 Long term (current) use of hormonal contraceptives